=== PATIENT | female | born 1990 | race Caucasian/White ===

== ENCOUNTER 2022-05-12 17:24 | Emergency (ER) | payer OTHER ==
--- NOTE | 2022-05-12 18:20 | NUR ---
PT CALLED FROM LOBBY BUT PER AUNT, PT LEFT STATING SHE DOES NOT WISH TO BE SEEN ANYMORE. PT LWBS.
== END 2022-05-12 18:20 | disposition left against medical advice (07) ==
LOC: MED 17:24
DX: S60.361A Insect bite (nonvenomous) of right thumb, initial encounter (principal); Z53.21 Procedure and treatment not carried out due to patient leaving prior to being seen by health care provider; X58.XXXA Exposure to other specified factors, initial encounter; Y93.89 Activity, other specified; Y92.89 Other specified places as the place of occurrence of the external cause; Y99.8 Other external cause status

== ENCOUNTER 2022-05-21 10:46 | Emergency (ER) | payer OTHER ==
[~2022-05-21] VITALS: Ht 170.2 cm; Wt 70.5 kg
[2022-05-21 11:56] VITALS: BP 113/65
[2022-05-21] MEDS ORDERED: LIDOCAINE 1% 500 MG/ 50 ML VIAL INJ ONE (12:10)
--- NOTE | 2022-05-21 12:10 | NUR ---
BIB C/O TIP OF RIGHT THUMB SWELLING, HURTING,DRAINING S/P INSECT BITE X 2 WEEKS.
[2022-05-21] MEDS ORDERED: LIDOCAINE MPF 1% 5 ML ONE (13:06)
[2022-05-21] MEDS ORDERED: CEPH-588 PO (13:33)
[2022-05-21] MEDS ORDERED: SULF-59 PO (13:33)
[2022-05-21] MEDS ORDERED: SULFAMETH/TRIMETH DS 800/160MG 1 TAB PO ONE (13:35)
[2022-05-21] MEDS ORDERED: cephALEXin 500 MG CAP PO ONE (13:35)
[2022-05-21 14:30] VITALS: BP 113/65
--- NOTE | 2022-05-21 14:30 | NUR ---
PTS RIGHT THUMB WOUND WAS CLEANED WITH SALINE AND GAUZE 4X4. WOUND WAS THEN WRAPPED WITH NONADHERENT GAUZE PAD AND GAUZE ROLL AND SECURED WITH TAPE.
--- NOTE | 2022-05-21 14:30 | NUR ---
Patient discharged with v/s stable. Written and verbal after care instructions given and explained. Patient alert, oriented and verbalized understanding of instructions. Ambulatory with steady gait. All questions addressed prior to discharge. ID band removed. Patient advised to follow up with PMD. Rx of KEFLEX, BACTRIM given. Patient educated on indication of medication including possible reaction and side effects. Opportunity to ask questions provided and answered.
== END 2022-05-21 14:30 | disposition home or self-care (01) ==
LOC: MED 10:46
DX: L03.011 Cellulitis of right finger (principal); Z79.899 Other long term (current) drug therapy
CPT/HCPCS: 10060; 99283; J2001